=== PATIENT | male | born 1970 | race Caucasian/White ===

== ENCOUNTER 2017-11-17 19:03 | Inpatient (IN) | payer OTHER ==
[~2017-11-17 19:03] MED LIST: ISOVUE-370 76%-LOCM 1 ML ONE
[2017-11-17 19:35] LABS: #Monocytes 1.1 thou/uL (0.11-0.59); #Neutrophils 11.4 thou/uL (1.40-6.50); %Basophils 0.1 % (0.0-1.0); %Eosinophils 0.1 % (0.0-10.0); %Lymphocytes 7.3 % (21.0-51.0); %Monocytes 8.4 % (0.0-10.0); %Neutrophils 84.1 % (42.0-75.0); Hemoglobin 15.1 g/dL (14.0-18.0); Mean Corpuscular HGB CONC 35.6 g/dL (32.0-36.0); Mean Corpuscular Hemoglobin 31.8 pg (27.0-31.0); Mean Corpuscular Volume 89.4 fL (78.0-98.0); Mean Platelet Volume 6.7 fL (7.4-10.4); Platelet Count 227 thou/uL (130-400); RBC Distribution Width 12.4 % (11.5-14.5); Red Blood Cell (RBC) Count 4.76 mill/uL (4.70-6.10); White Blood Cell (WBC) Count 13.6 thou/uL (4.8-10.8)
[2017-11-17 19:53] LABS: ALT (SGPT) 41 U/L (8-55); AST (SGOT) 21 U/L (5-34); Albumin 4.9 g/dL (3.5-5.0); Alkaline Phosphatase 87 U/L (40-150); Anion Gap 15 mmol/L (10-20); BUN (Urea Nitrogen) 16 mg/dL (8.9-20.6); Bilirubin, Total 0.9 mg/dL (0.2-1.2); Calc. Creatinine Clearance 0 mL/min (70-130); Calcium 9.8 mg/dL (7.8-10.44); Carbon Dioxide 25 mmol/L (22-29); Chloride 103 mmol/L (98-107); Estimated GFR-MDRD 68; Globulin 2.6 g/dL (2.4-3.5); Glucose 110 mg/dL (70-105); Lipase 30 U/L (8-78); Potassium 3.5 mmol/L (3.5-5.1); Protein, Total 7.5 g/dL (6.0-8.3); Sodium 139 mmol/L (136-145)
[2017-11-17] MEDS ORDERED: Amlodipine 5 MG TAB ONE (20:22)
[2017-11-17] MEDS ORDERED: cloNIDine 0.1 MG TAB ONE (20:22)
[2017-11-17] MEDS ORDERED: Ondansetron HCl/PF 4 MG/2 ML Vial ONE (21:21)
--- NOTE | 2017-11-17 21:35 | ULT ---
RIGHT UPPER QUADRANT ABDOMINAL ULTRASOUND: 11/17/17 COMPARISON: None. HISTORY: Right upper quadrant abdominal pain. TECHNIQUE: Multiplanar ramirez scale and color doppler images were obtained in a right upper quadrant abdominal ult rasound. FINDINGS: There an anechoic cysts in the liver. The largest measures 2.1 cm in greatest dimension. The liver de monstrates increased echogenicity without intrahepatic ductal dilatation. The gallbladder contains multiple nonshadowing echogenic structures along the wall which may represen t small cholesterol or adenomatous polyps. There is no gallbladder wall thickening or pericholecystic fluid. No shadowing stones are seen in the gallbladder. The common bile duct is normal measuring 3 m m. The pancreas cannot be well visualized. There are shadowing calculi in the right kidney without evide nce of hydronephrosis. The largest calculus measures 9 mm in size. The right kidney measures 10.4 cm in length. IMPRESSION: 1. Likely gallbladder polyps. 2. Hepatic cyst. 3. Fatty liver. 4. Right renal calculi. POS: C
[2017-11-17 21:40] LABS: Bilirubin Negative (Negative); Blood, Urine Large (Negative); Clarity CLEAR (Clear); Glucose, Urine (Dipstick) Negative (Negative); Leukocyte Negative (Negative); Nitrite Negative (Negative); Protein, Urine (Dipstick) 100 mg/dL (Neg-Trace); Specific Gravity, Urine 1.011 (1.002-1.036); Urobilinogen 0.2 mg/dL (0.2-1.0)
[2017-11-17 21:41] LABS: Bacteria/HPF None Seen HPF (None Seen); Hyaline Casts/LPF 0-3 HYALINE CAST LPF (0-3 Hyaline); RBC/HPF GREATER THAN 50-TNTC HPF (0-3); Squamous Epithelial None Seen HPF (0-3); WBC/HPF 0-3 HPF (0-3)
[2017-11-17] MEDS ORDERED: Piperacillin/Tazobactam 3.375 GM VIAL ONE (22:42)
--- NOTE | 2017-11-17 23:00 | CT ---
CT OF THE ABDOMEN AND PELVIS WITH CONTRAST: 11/17/17 COMPARISON: None. HISTORY: History of kidney stones. Abdominal pain that began acutely this morning. The pain started in the epi gastric region and is now traveling to the right upper and right lower quadrant of the abdomen. TECHNIQUE: Multiple contiguous axial images were obtained in a CT of the abdomen and pelvis with contrast. Coron al reformats were performed. FINDINGS: There are hypodensities in the liver measuring up to 2.2 cm in size which represents cysts. There is a 1.4 cm nonobstructing calcification in the right kidney. No calcifications are seen in the right ur eter. There is a tiny 3 mm nonobstructing calcification in the left kidney. The gallbladder, adrenal glands, spleen, and pancreas are unremarkable. No free air, free fluid or stranding changes are seen in the abdomen or pelvis. The appendix is slightly enlarged measuring 8 mm in size. There is an appendicolith in the base of th e appendix. There are subtle stranding changes surrounding the appendix. These findings are likely se condary to early acute appendicitis. The small bowel and large bowel are unremarkable. No abdominal or pelvic lymphadenopathy are seen. There is hypodensity in the medial aspect of the rig ht psoas muscle. which is of uncertain significance but could potentially represent a hypodense mass in this location. The osseous structures and abdominal wall soft tissues are unremarkable. The visualized inferior thor ax is unremarkable. IMPRESSION: 1. Acute appendicitis. 2. Bilateral nonobstructing renal calcifications. 3. Hepatic cysts. 4. Hypodensity along the right psoas muscle is nonspecific but could potentially represent a hyp odense mass. A nerve sheath tumor is a possibility. An MRI of the lumbar spine is recommended for fur ther evaluation on a nonemergent outpatient basis. Dr. Fuentes notified of the findings at 10:28 p.m. on 11/17/17.
[2017-11-18] MEDS ORDERED: Fentanyl 100 MCG/2 ML VIAL ONE ×4 (00:23→10:13)
[2017-11-18] MEDS ORDERED: Acetaminophen 500 MG TAB ONE (00:31)
[2017-11-18] MEDS ORDERED: Ondansetron HCl/PF 4 MG/2 ML Vial IVP PRN ×2 (01:29→11:34)
[2017-11-18] MEDS ORDERED: Lactated Ringer's 1,000 ML IV SCH (01:30)
[2017-11-18 01:49] VITALS: BMI 31.1
[2017-11-18] MEDS ORDERED: Lactated Ringer's 500 ML IV SCH (05:45)
[2017-11-18] MEDS: Lactated Ringer's 1,000 ML IV SCH ×3 (06:30→21:56)
--- NOTE | 2017-11-18 07:54 | HP ---
CHIEF COMPLAINT: Right lower quadrant abdominal pain. HISTORY: This is a 46-year-old male with a 24-hour history of epigastric pain, which has now migrate d to the right lower quadrant, associated with nausea, no vomiting. PAST MEDICAL HISTORY: Hypertension, mild renal insufficiency, history of kidney stones. PAST SURGICAL HISTORY: He had nephrolithiasis. He has had a nephrostomy tube. He had excision of a benign schwannoma from his right psoas muscle. MEDICATIONS: Include clonidine, amlodipine, , and potassium citrate. ALLERGIES: No known drug allergies. FAMILY HISTORY: Heart disease. SOCIAL HISTORY: He is a senior environmental engineer. No tobacco or social alcohol. PHYSICAL EXAMINATION: VITAL SIGNS: Temperature 98.2, pulse 110, blood pressure 134/91. GENERAL: He is awake. He is lying still. HEENT: Unremarkable. LUNGS: Clear. HEART: Regular rate and rhythm. ABDOMEN: Soft, tender in the right lower quadrant, positive Rovsing. He has a well-healed surgical scar, right lower quadrant. EXTREMITIES: Unremarkable. LABORATORY AND X-RAY FINDINGS: White count 13.6, H and H 15 and 42, platelet count 277. Electrolyte s show his creatinine is 1.17, BUN 16, glucose 110. Urinalysis shows too numerous to count red cells . ASSESSMENT: Acute appendicitis. PLAN: Laparoscopic appendectomy. CONSENT: I discussed the planned procedure as well as risk of bleeding, infection, injury to bowel a nd bladder, need to open. He understands and gives informed consent.
[2017-11-18] MEDS ORDERED: cefOXitin 2 GM VIAL ONE (08:00)
[2017-11-18] MEDS ORDERED: Sodium Chloride 0.9% 100 ML ONE (08:00)
[2017-11-18] MEDS ORDERED: Bupivacaine/Epinephrine 0.25% 30 ML VIAL ONE (09:52)
[2017-11-18] MEDS ORDERED: Famotidine/PF 20 mg/2ml Vial ONE (10:13)
[2017-11-18] MEDS ORDERED: Ondansetron HCl/PF 4 MG/2 ML Vial ONE (10:13)
[2017-11-18] MEDS ORDERED: hydrALAZINE 20 MG/ML VIAL SLOW IVP PRN (11:34)
[2017-11-18] MEDS ORDERED: Dextrose 50% Abboject 50 ML SYRINGE SLOW IVP PRN (11:34)
[2017-11-18] MEDS ORDERED: Morphine 4 MG/ML VIAL SLOW IVP PRN (11:34)
[2017-11-18] MEDS ORDERED: HYDROcodone/Acetaminophen 10/325 mg Tablet PO PRN ×2 (11:34)
[2017-11-18] MEDS ORDERED: Dextrose 5% in Water 1,000 ML IV PRN (11:34)
[2017-11-18] MEDS ORDERED: Promethazine HCl 25 MG/ML VIAL IM PRN (11:34)
[2017-11-18] MEDS: Piperacillin/Tazobactam 3.375 GM in Sodium Chloride 0.9% 100 ML IVPB SCH ×2 (14:13→14:59)
[2017-11-18] MEDS: Famotidine/PF 20 mg/2ml Vial SLOW IVP SCH (21:44)
[2017-11-18] MEDS: Famotidine 20 MG TAB PO SCH (21:56)
[2017-11-19] MEDS: Piperacillin/Tazobactam 3.375 GM in Sodium Chloride 0.9% 100 ML IVPB SCH ×3 (00:57→11:51)
[2017-11-19 06:01] LABS: Anion Gap 12 mmol/L (10-20); BUN (Urea Nitrogen) 12 mg/dL (8.9-20.6); Calc. Creatinine Clearance 117 mL/min (70-130); Calcium 9.4 mg/dL (7.8-10.44); Carbon Dioxide 26 mmol/L (22-29); Chloride 108 mmol/L (98-107); Estimated GFR-MDRD 71; Glucose 152 mg/dL (70-105); Potassium 3.5 mmol/L (3.5-5.1); Sodium 142 mmol/L (136-145)
[2017-11-19 06:33] LABS: Band 10 % (5-11); Hemoglobin 14.1 g/dL (14.0-18.0); Lymphocytes 3 % (21-51); MDiff Complete? YES; Mean Corpuscular HGB CONC 33.3 g/dL (32.0-36.0); Mean Corpuscular Hemoglobin 30.7 pg (27.0-31.0); Mean Corpuscular Volume 92.1 fL (78.0-98.0); Mean Platelet Volume 7.4 fL (7.4-10.4); Monocytes 6 % (0-10); Neutrophil 81 % (42-75); Platelet Count 201 thou/uL (130-400); RBC Distribution Width 12.7 % (11.5-14.5); Red Blood Cell (RBC) Count 4.59 mill/uL (4.70-6.10); White Blood Cell (WBC) Count 22.2 thou/uL (4.8-10.8)
[2017-11-19] MEDS: Famotidine 20 MG TAB PO SCH (08:16)
[2017-11-19] MEDS: Famotidine/PF 20 mg/2ml Vial SLOW IVP SCH (08:17)
[2017-11-19] MEDS ORDERED: Enoxaparin Sodium 40 MG/0.4 ML SYRINGE SC SCH (09:00)
[2017-11-19] MEDS: Lactated Ringer's 1,000 ML IV SCH (09:37)
[2017-11-19 11:23] VITALS: BP 133/89; TEMP 97.8
--- NOTE | 2017-11-19 11:36 | DIS ---
DATE OF ADMISSION: 11/17/2017 DATE OF DISCHARGE: 11/19/2017 DISCHARGE DIAGNOSIS: Acute gangrenous appendicitis with periappendiceal abscess. PROCEDURES DURING ADMISSION: Laparoscopic appendectomy and drainage of periappendiceal abscess. HOSPITAL COURSE: The patient was admitted, given IV antibiotics, taken to the operating room where dhaval suggs underwent a laparoscopic appendectomy. He was found to have a retrocecal appendix with periappendi ceal abscess. This was removed. A drain was placed. Postoperatively, he has done well. He really has minimal pain. He is tolerating diet, afebrile. He is discharged home in good condition on hydro codone, Zofran, and doxycycline. He will follow up with me in 2 weeks.
== END 2017-11-19 12:47 | disposition home or self-care (01) | DRG 340 ==
LOC: ERS 19:03 → OBSVTOIN 20:30 → INTOOBSV 20:30 → SURG B 20:30
PROVIDERS: ADMIT Surgery; ATTEND Surgery
PROC: 0DTJ4ZZ Resection of Appendix, Percutaneous Endoscopic Approach (ICD-10-PCS; principal; 2017-11-18)
PROC: 0W9G40Z Drainage of Peritoneal Cavity with Drainage Device, Percutaneous Endoscopic Approach (ICD-10-PCS; 2017-11-18)
DX: K35.3 Acute appendicitis with localized peritonitis (principal); I10 Essential (primary) hypertension; Z87.442 Personal history of urinary calculi
CPT/HCPCS: 36415; 74177; 76705; 80048; 80053; 81003; 81015; 83690; 85025; 87070; 87077; 87186; 87205; 88304; 93005; 96361; 96365; 96375; 96376; J0131; J0694; J1650; J2270; J2405; J2543; J3010; J7050; S0028

== ENCOUNTER 2019-01-09 13:40 | Outpatient (CLI) | payer BC ==
[2019-01-09 14:16] LABS: Hemoglobin 14.1 g/dL (14.0-18.0); Mean Corpuscular HGB CONC 35.7 g/dL (32.0-36.0); Mean Corpuscular Volume 89.6 fL (78.0-98.0); Mean Platelet Volume 7.4 fL (7.4-10.4); Platelet Count 225 thou/uL (130-400); RBC Distribution Width 12.4 % (11.5-14.5); White Blood Cell (WBC) Count 6.6 thou/uL (4.8-10.8)
[2019-01-09 14:21] LABS: PTT 29.2 SEC (22.9-36.1); Prothrombin Time 13.5 SEC (12.0-14.7)
[2019-01-09 14:30] LABS: Platelet Count 232 thou/uL (130-400)
[2019-01-09 14:34] LABS: Anion Gap 12 mmol/L (10-20); BUN (Urea Nitrogen) 15 mg/dL (8.9-20.6); Calc. Creatinine Clearance 0 mL/min (70-130); Carbon Dioxide 26 mmol/L (22-29); Chloride 106 mmol/L (98-107); Estimated GFR-MDRD 65; Glucose 117 mg/dL (70-105); Potassium 3.8 mmol/L (3.5-5.1); Sodium 140 mmol/L (136-145)
[2019-01-09 14:46] LABS: EPI 107 SEC (67-199)
== END 2019-01-09 13:41 | disposition home or self-care (01) ==
LOC: LABBT 13:40
PROVIDERS: ATTEND Urology
DX: Z01.812 Encounter for preprocedural laboratory examination (principal); N20.0 Calculus of kidney
CPT/HCPCS: 80048; 85027; 85576; 85610; 85730

== ENCOUNTER 2019-01-11 05:56 | Day surgery (SDC) | payer BC ==
[2019-01-09 14:12] VITALS: BMI 31.4
[2019-01-11] MEDS ORDERED: Fentanyl 100 MCG/2 ML VIAL ONE (07:09)
[2019-01-11] MEDS ORDERED: Iothalamate Meglumine 60% 50 ML VIAL FS ONE (07:51)
--- NOTE | 2019-01-11 08:58 | RAD ---
KUB: Date: 01/11/19 HISTORY: Preoperative evaluation. COMPARISON: 12/26/18. FINDINGS: Right renal calculus up to 1.2 cm in maximum length. Small left renal calculus. No overt ureteral harley culus. IMPRESSION: Bilateral renal calculi. POS: ERICKSON
[2019-01-11] MEDS ORDERED: Ondansetron PF 4 MG/2 ML Vial ONE (12:14)
[2019-01-11] MEDS ORDERED: Lidocaine 1% PF 5 ML VIAL ONE (12:14)
[2019-01-11] MEDS ORDERED: PROPOFOL 200 MG/20 ML VIAL ONE (12:14)
[2019-01-11] MEDS ORDERED: PHENYLEPHRINE-NS 100 MCG/ML 10 ML SYRINGE ONE (12:14)
[2019-01-11] MEDS ORDERED: Ketorolac Tromethamine 30 MG/ML VIAL ONE (12:14)
[2019-01-11] MEDS ORDERED: Dexamethasone 20 MG/5 ML VIAL ONE (12:14)
--- NOTE | 2019-01-11 17:05 | OP ---
DATE OF PROCEDURE: 01/11/2019 PREOPERATIVE DIAGNOSIS: Right renal stone. POSTOPERATIVE DIAGNOSIS: Right renal stone. PROCEDURE PERFORMED: Right extracorporeal shock wave lithotripsy. ANESTHETIC: General. ESTIMATED BLOOD LOSS: Not recorded. FINDINGS: There was a 13 mm right renal pelvic stone treated with 2500 shocks. Majority of it level 4, the last 500 level 5. It appeared to fragment well and for this reason stent was not placed. OPERATIVE TECHNIQUE: Obtained written and verbal consent from the patient after documenting normal preoperative blood work and platelet function assays and after being sure we could see the stone on his KUB, he was taken to the operating suite. He was placed in a supine position on the treatment table. PlexiPulses were placed on his lower extremities and turned on. He was given a general anesthetic and oral obturator intubation. He was coupled to the lithotripsy unit. The stone was placed in treatment focal point. Shockwave therapy was commenced. They were low kv at a rate of 60. After couple 100 shocks, a 5-minute pause was given. We then increased the kv slowly to level 4 had kept the rate at 60. The last 500 shocks we increased to level 5. We used fluoroscopy intermittently to document stone fragmentation and reposition as necessary. At the end of the procedure, the stone had fragment well enough that we did not feel a stent need to be placed at this point. He was awakened and extubated and taken by kristen to the recovery room. Job ID: [id number]
--- NOTE | 2019-01-11 18:09 | EKG ---
Test Reason : PREOP Blood Pressure : / mmHG Vent. Rate : 059 BPM Atrial Rate : 059 BPM P-R Int : 138 ms QRS Dur : 098 ms QT Int : 448 ms P-R-T Axes : 060 019 033 degrees QTc Int : 443 ms Sinus bradycardia Otherwise normal ECG When compared with ECG of 17-NOV-2017 19:16, Vent. rate has decreased BY 49 BPM T wave amplitude has increased in Anterolateral leads Confirmed by DR. Chris HUNT ([id number]) on 01/11/2019 6:08:53 PM Referred By: FRANCY Confirmed By:DR. Chris HUNT
== END 2019-01-11 10:45 | disposition home or self-care (01) ==
LOC: SDC 05:56
PROVIDERS: ATTEND Urology
PROC: 0TF3XZZ Fragmentation in Right Kidney Pelvis, External Approach (ICD-10-PCS; principal; 2019-01-11)
DX: N20.0 Calculus of kidney (principal); I10 Essential (primary) hypertension
CPT/HCPCS: 74018; 93005; 93010; J0690; J1100; J1885; J2001; J2405; J2704; J3010

== ENCOUNTER 2019-03-01 06:07 | Day surgery (SDC) | payer BC ==
[2019-02-28 09:05] VITALS: BMI 31.8
[2019-03-01] MEDS ORDERED: Fentanyl 100 MCG/2 ML VIAL ONE (06:57)
[2019-03-01] MEDS ORDERED: Iothalamate Meglumine 60% 50 ML VIAL FS ONE (07:49)
[2019-03-01] MEDS ORDERED: Meperidine HCl/PF 25 MG/ML VIAL ONE (09:01)
--- NOTE | 2019-03-01 10:30 | OP ---
DATE OF PROCEDURE: 03/01/2019 PREOPERATIVE DIAGNOSIS: Right renal stones. POSTOPERATIVE DIAGNOSIS: Right renal stones. PROCEDURES PERFORMED: Right extracorporeal shockwave and cystoscope and right retrograde. ANESTHESIA: General. ESTIMATED BLOOD LOSS: Not recorded. FINDINGS: There was a group of stones probably each in the 3 to 4 mm range fragments from a prior lithotripsy. It was in the calyx off the lower pole. They were treated with 2500 shocks at maximum kV level of 4 to 5. We could not see them well because of overlying bowel gas and also there were cystine stones, so they were fainter, so we ended up doing a cysto and a retrograde and outlining them with contrast, so that it could be clearly seen and clearly placed in treatment focal point. DESCRIPTION OF PROCEDURE: After obtained written and verbal consent from the patient, he was taken to the operating suite. He was placed in a supine position on the treatment table. PlexiPulses were placed on his lower extremities and turned on. He was given a general anesthetic and oral obturator intubation. The fluoroscopy unit was brought in, but because of overlying bowel gas, we could not see the stones, so he was placed in the dorsal lithotomy position. He received 2 g of Ancef. He was sterilely prepped and draped. Cystoscopy was performed with a 22-Chinese sheath. This was passed under direct vision, well lubricated through the male urethra with a 30-degree lens and video camera and monitor. A 5-Chinese Pollack catheter had been flushed with contrast was placed up the right ureter. Contrast was injected showing the stones as filling defect in one of the lower pole calyces. He was then coupled to the lithotripsy unit. He was taken out of the dorsal lithotomy position after the instruments were removed, but the small Pollack catheter was left in still attached to contrast, so if we needed to reinject, we could. Shockwave therapy was started at a low kV after couple of 100 shocks, a few minutes pause was given and then restarted with the shockwave at 60 per minute going to level 4 and then to level 5. After 2500 shocks, the procedure was terminated. It look like the stones were fragmented well. He was awakened, extubated, and taken by stretcher to recovery room. Thus, the open-ended ureteral catheter was removed at the end of the case. Job ID: [id number]
--- NOTE | 2019-03-01 16:54 | EKG ---
Test Reason : PREOP Blood Pressure : / mmHG Vent. Rate : 070 BPM Atrial Rate : 070 BPM P-R Int : 140 ms QRS Dur : 094 ms QT Int : 442 ms P-R-T Axes : 075 045 043 degrees QTc Int : 477 ms Normal sinus rhythm Normal ECG Confirmed by ONDINA BEATTY ([id number]) on 03/01/2019 4:53:42 PM Referred By: LEANDRO Confirmed By:ONDINA BEATTY
== END 2019-03-01 10:25 | disposition home or self-care (01) ==
LOC: SDC 06:07
PROVIDERS: ATTEND Urology
DX: N20.0 Calculus of kidney (principal); Z79.899 Other long term (current) drug therapy; Z98.890 Other specified postprocedural states
CPT/HCPCS: 93005; 93010; C1758; J2175; J3010

== ENCOUNTER 2021-05-15 08:12 | Outpatient (CLI) | payer BC | END 2021-05-15 08:13 | disposition home or self-care (01) | LOC: NM 08:12 | PROVIDERS: ATTEND Internal Medicine Endocrinology, Diabetes & Metabolism | DX: E04.1 Nontoxic single thyroid nodule (principal); E05.90 Thyrotoxicosis, unspecified without thyrotoxic crisis or storm | CPT/HCPCS: 78014; A9516 ==

== ENCOUNTER 2021-06-16 09:43 | Outpatient (CLI) | payer BC | END 2021-06-16 09:44 | disposition home or self-care (01) | LOC: BICULT 09:43 | PROVIDERS: ATTEND Otolaryngology Otolaryngic Allergy | DX: E05.10 Thyrotoxicosis with toxic single thyroid nodule without thyrotoxic crisis or storm (principal) | CPT/HCPCS: 76536 ==

== ENCOUNTER 2021-10-06 08:02 | Outpatient (CLI) | payer BC | END 2021-10-06 08:03 | disposition home or self-care (01) | LOC: BICCT 08:02 | PROVIDERS: ATTEND Internal Medicine Cardiovascular Disease | DX: I77.810 Thoracic aortic ectasia (principal); N20.0 Calculus of kidney | CPT/HCPCS: 71275; 82565 ==